=== PATIENT | female | born 1970 | race Caucasian/White ===

== ENCOUNTER 2021-08-27 13:54 | Emergency (ER) | payer MEDICARE, MEDICAID ==
[~2021-08-27] VITALS: Ht 162.6 cm; Wt 95.5 kg
[2021-08-27 14:19] VITALS: BP 141/66
[2021-08-27] MEDS ORDERED: CLON-592 PO (14:24)
[2021-08-27] MEDS ORDERED: VENL25TA47 PO (14:24)
[2021-08-27] MEDS ORDERED: ACETAMINOPHEN 500 MG TABLET PO ONE (14:30)
[2021-08-27 15:01] LABS: COVID AG,FIA SOURCE NASAL SWAB
[2021-08-27 15:41] LABS: INFLUENZA TYPE A NEGATIVE FOR TYPE A (NEGATIVE); INFLUENZA TYPE B NEGATIVE FOR TYPE B (NEGATIVE)
== END 2021-08-27 16:16 | disposition home or self-care (01) ==
LOC: EMS 13:56
DX: U07.1 COVID-19 (principal); F20.9 Schizophrenia, unspecified; Z79.899 Other long term (current) drug therapy; Z20.822 Contact with and (suspected) exposure to COVID-19
CPT/HCPCS: 87804; 99283

== ENCOUNTER 2022-12-30 14:54 | Emergency (ER) | payer MEDICARE, MEDICAID ==
[~2022-12-30] VITALS: Ht 154.9 cm; Wt 95.5 kg
[~2022-12-30 14:54] MED LIST: CLON-592 PO; VENL25TA47 PO
[2022-12-30] MEDS ORDERED: CLON2TAB11 PO (15:06)
[2022-12-30] MEDS ORDERED: CLON1TAB12 PO (15:06)
[2022-12-30] MEDS ORDERED: CLOZ100T11 PO (15:06)
[2022-12-30] MEDS ORDERED: BENZ1TAB84 PO (15:06)
[2022-12-30] MEDS ORDERED: VENL-68 PO (15:06)
[2022-12-30] MEDS ORDERED: PERP4TAB10 PO (15:06)
[2022-12-30] MEDS ORDERED: VENL-67 PO (15:06)
[2022-12-30 15:09] VITALS: TEMP 99.8
[2022-12-30] MEDS ORDERED: ONDA-104 PO (15:58)
[2022-12-30] MEDS ORDERED: NAPH15DR75 OU (15:58)
[2022-12-30] MEDS ORDERED: ACET-66 PO (15:58)
[2022-12-30] MEDS ORDERED: GUAIFDM PO (15:58)
[2022-12-30] MEDS: GuaiFENesin/D-METHORPHAN [SUGAR-FREE] 200-20MG/10 ML SYRUP UDCUP PO ONE (16:01)
[2022-12-30] MEDS: ACETAMINOPHEN 500 MG TABLET PO ONE (16:01)
[2022-12-30] MEDS: ONDANSETRON HCL 4 MG TABLET PO ONE (16:01)
[2022-12-30] MEDS: MECLIZINE HCL 25 MG TABLET PO ONE (16:01)
[2022-12-30 16:09] VITALS: BP 138/80; PULSE 99; RESP 16
== END 2022-12-30 16:10 | disposition home or self-care (01) ==
LOC: EMS 14:54
DX: U07.1 COVID-19 (principal); H10.9 Unspecified conjunctivitis; F20.9 Schizophrenia, unspecified; R42 Dizziness and giddiness; F41.9 Anxiety disorder, unspecified
CPT/HCPCS: 99284; 93005; Q0162

== ENCOUNTER 2023-05-02 09:25 | Emergency (ER) | payer MEDICARE, MEDICAID ==
[~2023-05-02] VITALS: Ht 154.9 cm; Wt 90.9 kg
[~2023-05-02 09:25] MED LIST changes: +ACET-66 PO; +BENZ1TAB84 PO; -CLON-592 PO; +CLON1TAB12 PO; +CLON2TAB11 PO; +CLOZ100T11 PO; +GUAIFDM PO; +NAPH15DR75 OU; +ONDA-104 PO; +PERP4TAB10 PO; +VENL-67 PO; +VENL-68 PO; -VENL25TA47 PO
[2023-05-02 09:41] VITALS: TEMP 98.4
[2023-05-02] MEDS ORDERED: HALO5TAB2 PO (09:43)
[2023-05-02 10:45] LABS: APPEARANCE,URINE CLEAR (CLEAR); BILIRUBIN,URINE NEGATIVE (NEGATIVE); COLOR,URINE LIGHT YELLOW (YELLOW); GLUCOSE, URINE (UA) NEGATIVE (NEGATIVE); KETONES,URINE NEGATIVE (NEGATIVE); LEUKOCYTE ESTERASE ,URINE NEGATIVE (NEGATIVE); NITRATE,URINE NEGATIVE (NEGATIVE); OCCULT BLOOD,URINE NEGATIVE (NEGATIVE); PROTEIN,URINE NEGATIVE (NEGATIVE); SPECIFIC GRAVITIY, URINE 1.016 (1.003-1.030); UROBILINOGEN,URINE <=1.0 mg/dL (<=1.0)
[2023-05-02] MEDS: ONDANSETRON HCL 4 MG/2 ML VIAL IVP ONE (10:51)
[2023-05-02] MEDS: SODIUM CHLORIDE 0.9% 1,000 ML IV ONE (10:52)
[2023-05-02] MEDS: MORPHINE SULFATE 2 MG/ML SYRINGE IVP ONE (10:52)
[2023-05-02 10:58] LABS: EOSINOPHILS % (AUTO) 0 % (1.0-6.0); HEMOGLOBIN 12.9 g/dL (12.0-16.0); LYMPHOCYTES # (AUTO) 1.9 K/uL (1.0-4.8); LYMPHOCYTES % (AUTO) 28.3 % (22.0-44.0); MEAN CORPUSCULAR HEMOGLOBIN 28.4 pg (26.0-34.0); MEAN CORPUSCULAR HGB CONC 34.1 G/dL (31.0-37.0); MEAN CORPUSCULAR VOLUME 83 fL (80-100); MONOCYTES # (AUTO) 0.5 K/uL (0.1-1.0); MONOCYTES % (AUTO) 6.6 % (2.0-9.0); NEUTROPHILS # (AUTO) 4.4 K/uL (1.8-7.7); NEUTROPHILS % (AUTO) 64.1 % (40.0-70.0); PLATELET COUNT (AUTO) 243 K/uL (150-450); RED BLOOD CELL COUNT(AUTO) 4.56 MIL/uL (4.00-5.20); RED CELL DISTRIBUTION WIDTH 13.5 % (11.5-14.5); WHITE BLOOD COUNT (AUTO) 6.8 K/uL (4.5-11.0)
[2023-05-02 11:14] LABS: ANION GAP 7 mmol/L (8-16); CALCIUM, TOTAL 9.2 mg/dL (8.8-10.5); CARBON DIOXIDE 31 mmol/L (22-29); CHLORIDE 103 mmol/L (98-107); CREATININE 0.73 mg/dL (0.60-1.30); GLOMERULAR FILTR. RATE CALC > 60 mL/min (>60); GLUCOSE,RANDOM 102 mg/dL (70-110); POTASSIUM 4.2 mmol/L (3.5-5.1); SODIUM SERUM 141 mmol/L (136-145); UREA NITROGEN, BLOOD 12 mg/dL (7-18)
[2023-05-02 11:18] LABS: ALANINE AMINOTRANSFERASE 30 U/L (12-78); ALBUMIN 3.4 g/dL (3.4-5.0); ALKALINE PHOSPHATASE 134 U/L (46-116); ASPARTATE AMINOTRANSFERASE 32 U/L (15-37); BILIRUBIN,TOTAL 0.2 mg/dL (0.1-1.0); LIPASE 37 U/L (16-77); TOTAL PROTEIN, SERUM 7.6 g/dL (6.4-8.2)
[2023-05-02 11:20] LABS: TROPONIN I-HIGH SENSITIVITY 5 ng/L (<51)
[2023-05-02] MEDS ORDERED: IBUP-1492 PO (12:01)
[2023-05-02] MEDS ORDERED: MAGN-169 PO (12:01)
[2023-05-02 12:20] VITALS: BP 120/75; PULSE 95; RESP 16
== END 2023-05-02 12:21 | disposition home or self-care (01) ==
LOC: EMS 09:25
DX: R10.84 Generalized abdominal pain (principal); K59.00 Constipation, unspecified; N83.201 Unspecified ovarian cyst, right side; F41.9 Anxiety disorder, unspecified; F20.9 Schizophrenia, unspecified; Z90.49 Acquired absence of other specified parts of digestive tract
CPT/HCPCS: 99285; 74176; 96374; 71045; 96361; 96375; 80053; 81003; 83690; 84484; 85025; 36415; 93005; J2270; J2405; J7030

== ENCOUNTER 2024-05-02 13:25 | Emergency (ER) | payer MEDICARE, MEDICAID ==
[~2024-05-02] VITALS: Ht 154.9 cm; Wt 90.9 kg
[~2024-05-02 13:25] MED LIST changes: +BENZ-247 PO; -BENZ1TAB84 PO; -GUAIFDM PO; +HALO5TAB2 PO; +IBUP-1492 PO; +MAGN-169 PO; -NAPH15DR75 OU; -ONDA-104 PO; -PERP4TAB10 PO
[2024-05-02 13:26] VITALS: BP 144/80; PULSE 105; RESP 18; TEMP 98.6; O2SAT 96
[2024-05-02] MEDS ORDERED: DIPH50 PO (14:05)
[2024-05-02] MEDS ORDERED: PRED-554 PO (14:06)
== END 2024-05-02 14:34 | disposition home or self-care (01) ==
LOC: EMS 13:27
DX: L25.9 Unspecified contact dermatitis, unspecified cause (principal); F20.9 Schizophrenia, unspecified; F41.9 Anxiety disorder, unspecified; Z90.49 Acquired absence of other specified parts of digestive tract; Z79.899 Other long term (current) drug therapy
CPT/HCPCS: 99283; Z7502

== ENCOUNTER 2024-05-09 14:29 | Emergency (ER) | payer MEDICARE, MEDICAID ==
[~2024-05-09] VITALS: Ht 154.9 cm; Wt 90.9 kg
[~2024-05-09 14:29] MED LIST changes: -ACET-66 PO; -CLOZ100T11 PO; +DIPH50 PO; -HALO5TAB2 PO; -IBUP-1492 PO; -MAGN-169 PO; +PRED-554 PO; -VENL-68 PO
[2024-05-09 14:38] VITALS: BP 131/84; PULSE 104; RESP 18; TEMP 98.5; O2SAT 99
[2024-05-09] MEDS ORDERED: VENL-68 PO (14:41)
[2024-05-09] MEDS ORDERED: HALO5TAB2 PO (14:41)
[2024-05-09] MEDS ORDERED: DIPH50 PO (15:00)
[2024-05-09] MEDS ORDERED: PRED-554 PO (15:00)
== END 2024-05-09 15:34 | disposition home or self-care (01) ==
LOC: EMS 14:29
DX: T78.40XA Allergy, unspecified, initial encounter (principal); F20.9 Schizophrenia, unspecified; F41.9 Anxiety disorder, unspecified; Z90.49 Acquired absence of other specified parts of digestive tract; Z79.899 Other long term (current) drug therapy; X58.XXXA Exposure to other specified factors, initial encounter
CPT/HCPCS: 99282; Z7502

== ENCOUNTER → 2024-08-01 | Emergency (ER) | payer MEDICARE, MEDICAID ==
[~2024-08-01] VITALS: Ht 154.9 cm; Wt 90.0 kg
[~2024-08-01] MED LIST changes: -CLON1TAB12 PO; +CLOZ100T11 PO; +HALO5TAB2 PO; +MECL-134 PO; +ONDA-104 PO; +VENL-68 PO
[2024-08-01 18:23] VITALS: TEMP 98.5
[2024-08-01 19:26] LABS: BASOPHILS % (AUTO) 0.6 % (0.0-2.0); EOSINOPHILS % (AUTO) 0 % (1.0-6.0); HEMATOCRIT 38.5 % (36-46); HEMOGLOBIN 12.8 g/dL (12.0-16.0); LYMPHOCYTES # (AUTO) 2.3 K/uL (1.0-4.8); LYMPHOCYTES % (AUTO) 35.4 % (22.0-44.0); MEAN CORPUSCULAR HGB CONC 33.2 G/dL (31.0-37.0); MEAN CORPUSCULAR VOLUME 84 fL (80-100); MONOCYTES # (AUTO) 0.5 K/uL (0.1-1.0); MONOCYTES % (AUTO) 7.5 % (2.0-9.0); NEUTROPHILS # (AUTO) 3.7 K/uL (1.8-7.7); NEUTROPHILS % (AUTO) 56.5 % (40.0-70.0); PLATELET COUNT (AUTO) 215 K/uL (150-450); RED BLOOD CELL COUNT(AUTO) 4.56 MIL/uL (4.00-5.20); RED CELL DISTRIBUTION WIDTH 13.9 % (11.5-14.5); WHITE BLOOD COUNT (AUTO) 6.6 K/uL (4.5-11.0)
[2024-08-01 19:32] LABS: ANION GAP 7 mmol/L (8-16); CALCIUM, TOTAL 9.2 mg/dL (8.8-10.5); CARBON DIOXIDE 29 mmol/L (22-29); CHLORIDE 104 mmol/L (98-107); CREATININE 0.83 mg/dL (0.60-1.30); GLOMERULAR FILTR. RATE CALC > 60 mL/min (>60); GLUCOSE,RANDOM 141 mg/dL (70-110); POTASSIUM 3.7 mmol/L (3.5-5.1); SODIUM SERUM 140 mmol/L (136-145); UREA NITROGEN, BLOOD 12 mg/dL (7-18)
[2024-08-01 19:41] LABS: TROPONIN I-HIGH SENSITIVITY 4 ng/L (<51)
[2024-08-01] MEDS: MECLIZINE HCL 25 MG TABLET PO ONE (19:54)
[2024-08-01] MEDS: ONDANSETRON 4 MG TABLET PO ONE (19:54)
[2024-08-01] MEDS: ACETAMINOPHEN 500 MG TABLET PO ONE (19:54)
[2024-08-01 21:46] VITALS: BP 123/77; PULSE 88; RESP 15; O2SAT 98
== END | disposition still patient (30) ==
LOC: EMS 18:16
DX: R42 Dizziness and giddiness (principal); F41.9 Anxiety disorder, unspecified; F20.9 Schizophrenia, unspecified; Z90.49 Acquired absence of other specified parts of digestive tract; Z79.899 Other long term (current) drug therapy
CPT/HCPCS: 99285; 70450; 71045; 80048; 84484; 85025; 36415; 93005; Q0162

== ENCOUNTER 2024-11-06 14:27 | Emergency (ER) | payer MEDICARE, MEDICAID ==
[~2024-11-06] VITALS: Ht 154.9 cm; Wt 90.9 kg
[~2024-11-06 14:27] MED LIST changes: -DIPH50 PO; -ONDA-104 PO; -PRED-554 PO; -VENL-68 PO
[2024-11-06 14:31] VITALS: TEMP 98.2
[2024-11-06 14:55] VITALS: BP 129/80; PULSE 88; RESP 17; O2SAT 99
[2024-11-06] MEDS ORDERED: TRIA15CR49 TP (15:18)
== END 2024-11-06 15:53 | disposition home or self-care (01) ==
LOC: EMS 14:27
DX: L30.9 Dermatitis, unspecified (principal); F20.9 Schizophrenia, unspecified; F31.9 Bipolar disorder, unspecified; F41.9 Anxiety disorder, unspecified; R21 Rash and other nonspecific skin eruption; Z90.49 Acquired absence of other specified parts of digestive tract; Z79.899 Other long term (current) drug therapy
CPT/HCPCS: 99283; Z7502